=== PATIENT | male | born 1990 | race Caucasian/White ===

== ENCOUNTER 2020-01-20 16:29 | Emergency (ER) | payer OTHER ==
[~2020-01-20] VITALS: Ht 167.6 cm; Wt 131.5 kg
[2020-01-20 16:39] VITALS: BP 171/102
[2020-01-20] MEDS ORDERED: PREDNISONE 20 M20 MG PO (17:59)
[2020-01-20] MEDS ORDERED: TESSALON PERLE100 MG PO (17:59)
[2020-01-20] MEDS ORDERED: PROAIR HFA8.5 GM INH (17:59)
== END 2020-01-20 18:41 | disposition home or self-care (01) ==
LOC: ER 16:29
DX: J45.901 Unspecified asthma with (acute) exacerbation (principal); J11.1 Influenza due to unidentified influenza virus with other respiratory manifestations